=== PATIENT | male | born 2000 | race Caucasian/White ===

== ENCOUNTER 2020-03-03 14:39 | Emergency (ER) | payer OTHER, SELFPAY ==
[2020-03-03 15:13] VITALS: BP 131/73; PULSE 72; RESP 18; TEMP 36.8; O2SAT 100
--- NOTE | 2020-03-03 15:32 | ED.GENADULT ---
HPI - General Adult General Chief complaint: Wound/Laceration Stated complaint: tick bite Time Seen by Provider: 03/03/20 15:35 Source: patient and RN notes reviewed Mode of arrival: ambulatory Limitations: no limitations History of Present Illness HPI narrative: This is a 19 years old male presents to the office for an evaluation of tick bite. He only noticed to a tick prior to arrival. He does not know exactly when or how he got it because he did not go hiking or walking in the park prior to this. 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 He admits to two dogs; but he does not think they have ticks. He is otherwise feeling well. He did not attempt to remove the tick himself. The only reason he knew it was a tick because he took a picture of it and zoom it. Related Data Allergies Allergy/AdvReac Type Severity Reaction Status Date / Time No Known Allergies Allergy Verified 03/03/20 15:03 Review of Systems Review of Systems: Narrative: CONSTITUTIONAL: Denies fever, chills CARDIOVASCULAR: Denies chest pain RESPIRATORY: Denies dyspnea GASTROINTESTINAL: Denies abdominal pain, nausea, vomiting GENITOURINARY: Denies urinary symptoms SKIN:Reports tick stuck on his pubic region MUSCULOSKELETAL: Denies acute back pain NEUROLOGIC: Denies lightheaded PMFSH Comments At time of signature, I agree with nursing past medical, surgical, social and family history. There is no relevant family history pertinent to the presenting complaint. Exam Narrative: Exam Narrative: GENERAL: This is a well-nourished, well-developed patient, in no apparent distress. CARDIOVASCULAR: Regular rate and rhythm without murmurs, gallops, or rubs. RESPIRATORY: Clear to auscultation. Breath sounds equal bilaterally. No wheezes, rales, or rhonchi. GASTROINTESTINAL: Abdomen soft, non-tender, nondistended. Bowel sounds are active. No hepato-splenomegaly, or palpable masses. No guarding. 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 NEURO: awake, alert, and oriented to person, place and time. There were no obvious focal neurologic abnormalities. Steady gait [place] Coma Scale Eye Opening: Spontaneous 4 [place] Coma Scale Motor: Obeys Commands 6 [place] Coma Scale Verbal: Oriented 5 Course Vital Signs Vital signs: Vital Signs Temperature 98.3 F 03/03/20 15:13 Pulse Rate 72 03/03/20 15:13 Respiratory Rate 18 03/03/20 15:13 Blood Pressure 131/73 03/03/20 15:13 Pulse Oximetry 100 03/03/20 15:13 Temperature 98.3 F 03/03/20 15:13 Pulse Rate 72 03/03/20 15:13 Respiratory Rate 18 03/03/20 15:13 Blood Pressure 131/73 03/03/20 15:13 Pulse Oximetry 100 03/03/20 15:13 Procedures Foreign Body Removal Foreign Body #1: Foreign Body Removal Date: 03/03/20 Time Out Performed: no Site: left and other (pubic region) Description of foreign body: other (tick) Sedation/Analgesia: none Technique: manual removal Confirmed by:: direct visualization Complications: none Post-procedure exam: awake, alert Foreign Body Removal Narrative: a full tick removed without any difficult. Medical Decision Making Vital Signs Vital Signs: Vital Signs Temperature 98.3 F 03/03/20 15:13 Pulse Rate 72 03/03/20 15:13 Respiratory Rate 18 03/03/20 15:13 Blood Pressure 131/73 03/03/20 15:13 Pulse Oximetry 100 03/03/20 15:13 Temperature 98.3 F 03/03/20 15:13 Pulse Rate 72 03/03/20 15:13 Respiratory Rate 18 03/03/20 15:13 Blood Pressure 131/73 03/03/20 15:13 Pulse Oximetry 100 03/03/20 15:13 Critical Care Time Critical Care Time Critical Care Time: No Discharge Plan Discharge Clinical Impression: Tick bite Qualifiers: Encounter type: initial encounter Qualified Code(s): W57.XXXA - Bitten or stung by nonvenomous insect and other nonvenomous arthropods, initial encounter Pat
--- NOTE | 2020-03-03 15:37 | PC.NURSE ---
teletypist and xpc tech at bedside to do tick removal.
== END 2020-03-03 15:50 | disposition home or self-care (01) ==
PROVIDERS: Emergency Provider Nurse Practitioner
DX: S30.860A Insect bite (nonvenomous) of lower back and pelvis, initial encounter (principal); W57.XXXA Bitten or stung by nonvenomous insect and other nonvenomous arthropods, initial encounter
CPT/HCPCS: 99203; G0463

== ENCOUNTER 2020-04-25 10:36 | Emergency (ER) | payer OTHER, SELFPAY ==
[2020-04-25 10:48] VITALS: BP 137/80; PULSE 82; RESP 16; TEMP 36.6; O2SAT 98
--- NOTE | 2020-04-25 11:00 | ED.EAR ---
HPI - Ear Problem General Chief complaint: Ear Stated complaint: ear pain Time Seen by Provider: 04/25/20 10:54 Source: patient and RN notes reviewed Mode of arrival: ambulatory Limitations: no limitations History of Present Illness HPI Narrative: Patient presents today complaining of decreased hearing in the right ear and irritation since yesterday 11 PM. Denies any additional symptoms to include fever, cough, congestion, rhinorrhea, sore throat. Denies drainage from the ear. He has tried no [id number] interventions prior to arrival. MD Complaint: decreased hearing Related Data Home Medications Medication Instructions Recorded Confirmed No Home Medications 04/25/20 04/25/20 Allergies Allergy/AdvReac Type Severity Reaction Status Date / Time No Known Allergies Allergy Verified 03/03/20 15:03 Review of Systems Review of Systems: Narrative: CONSTITUTIONAL: Denies body aches, fever, chills, or sweats. EYES: Denies visual changes, redness, or discharge. ENT: Denies rhinorrhea, congestion, sore throat. + Right ear irritation and decreased hearing CARDIOVASCULAR: Denies chest pain, palpitations, or edema. RESPIRATORY: Denies cough or dyspnea. GASTROINTESTINAL: Denies abdominal pain, nausea, vomiting, or diarrhea. GENITOURINARY: Denies dysuria or hematuria. SKIN: Denies rash, itching, or wounds. MUSCULOSKELETAL: Denies back pain, joint pain, or myalgia. NEUROLOGIC: Denies headache, numbness, tingling, or weakness. PSYCH: Denies depression or anxiety. PMFSH Social History Social History Gender identity (if verbalized by the patient): Male Comments At time of signature, I have reviewed and agree with nursing past medical, surgical, social and family history unless otherwise noted. Please see nursing chart for further information. There is no relevant family history pertinent to the presenting complaint Exam Narrative: Exam Narrative: GENERAL: Well-appearing, well-nourished, and in no acute distress. HEAD: Normocephalic, atraumatic. EYES: EOMI. No redness or drainage. Conjunctivae normal. ENT: Mucous membranes pink and moist. Nares clear. No rhinorrhea. TMs normal bilaterally. Mild middle ear effusions bilaterally. No evidence of infection. Throat normal. Uvula midline. NECK: Normal AROM. Supple. No lymphadenopathy. CHEST: No respiratory distress. Clear to auscultation. HEART: Regular rate and rhythm. No murmur appreciated. Normal peripheral pulses. EXTREMITIES: Normal range of motion. No edema. SKIN: Warm, dry, no rash. Capillary refill normal. Normal skin turgor. NEURO: No focal deficits. Alert and oriented x3. Gait steady. PSYCH: Normal affect. No signs of depression or anxiety. Course Vital Signs Vital signs: Vital Signs Temperature 97.8 F 04/25/20 10:48 Pulse Rate 82 04/25/20 10:48 Respiratory Rate 16 04/25/20 10:48 Blood Pressure 137/80 04/25/20 10:48 Pulse Oximetry 98 04/25/20 10:48 Temperature 97.8 F 04/25/20 10:48 Pulse Rate 82 04/25/20 10:48 Respiratory Rate 16 04/25/20 10:48 Blood Pressure 137/80 04/25/20 10:48 Pulse Oximetry 98 04/25/20 10:48 Reviewed. Pt has been instructed to follow up with his PCP regarding his elevated blood pressure today. Medical Decision Making Differential Diagnosis Differential Diagnosis: Otitis media, otitis externa, ruptured TM, serous otitis, eustachian tube dysfunction, cerumen impaction Vital Signs Vital Signs: Vital Signs Temperature 97.8 F 04/25/20 10:48 Pulse Rate 82 04/25/20 10:48 Respiratory Rate 16 04/25/20 10:48 Blood Pressure 137/80 04/25/20 10:48 Pulse Oximetry 98 04/25/20 10:48 Temperature 97.8 F 04/25/20 10:48 Pulse Rate 82 04/25/20 10:48 Respiratory Rate 16 04/25/20 10:48 Blood Pressure 137/80 04/25/20 10:48 Pulse Oximetry 98 04/25/20 10:48 Critical Care Time Critical Care Time Critical Care
== END 2020-04-25 11:07 | disposition home or self-care (01) ==
PROVIDERS: Emergency Provider Nurse Practitioner
DX: H65.01 Acute serous otitis media, right ear (principal)
CPT/HCPCS: 99211; G0463

== ENCOUNTER 2020-09-18 15:05 | Emergency (ER) | payer OTHER, SELFPAY ==
[2020-09-18 15:13] VITALS: BP 153/85; PULSE 100; RESP 16; TEMP 36.5; O2SAT 99
--- NOTE | 2020-09-18 15:20 | ED.GENADULT ---
HPI - General Adult General Chief complaint: Unspecified Stated complaint: Swollen Lymphnode Time Seen by Provider: 09/18/20 15:20 Source: patient Mode of arrival: ambulatory Limitations: no limitations History of Present Illness HPI narrative: Baldo Daniels is a 20 yo male with no PMH who comes to express care with R sided lump on jaw. Started about 3 days ago- vomited and diarrhea on Saturday. Related Data Allergies Allergy/AdvReac Type Severity Reaction Status Date / Time No Known Allergies Allergy Verified 03/03/20 15:03 Review of Systems Review of Systems: Narrative: CONSTITUTIONAL: Denies fever, chills, sweats. EYES: Denies visual changes, redness, discharge. ENT: Denies rhinorrhea, congestion, sore throat, otalgia. Right-sided jaw lesion that is painful CARDIOVASCULAR: Denies chest pain, palpitations, edema. RESPIRATORY: Denies dyspnea, wheezing, cough GASTROINTESTINAL: Denies abdominal pain, nausea, vomiting, diarrhea. GENITOURINARY: Denies dysuria, hematuria, abnormal discharge SKIN: Denies rash or itching. NEUROLOGIC: Denies numbness, or focal weakness. PSYCHIATRIC: Denies anxiety or depression. PMFSH Past Medical History Medical History No active medical problems Family History Family History Other Diabetes mellitus Hypertension Social History Social History (Updated 09/18/20 @ 15:33 by Tasha Nguyễn CNP) Smoking status: Current every day smoker Tobacco type: e-cigarettes/vaping Alcohol intake: current Gender identity (if verbalized by the patient): Male Comments At time of signature, I agree with nursing past medical, surgical, social and family history. There is no relevant family history pertinent to the presenting complaint. Blood pressure elevated to [id number] with PCP Exam Narrative: Exam Narrative: GENERAL: This is a well-nourished, well-developed patient, in moderate distress. HEAD: normocephalic, atraumatic. EYES: Sclera clear/white. Vision is grossly intact. EARS: External ears normal. Hearing grossly intact. NOSE: External nose normal without nasal discharge, nares without redness, no rhinorrhea. THROAT: Mucous membranes moist, no pain in the inner cheek are gingival border of right lower or upper teeth when examined manually NECK: Neck supple, non-tender CARDIOVASCULAR: Regular rate and rhythm without murmurs, gallops, or rubs. RESPIRATORY: Clear to auscultation. Breath sounds equal bilaterally. No wheezes, rales, or rhonchi. GASTROINTESTINAL: Abdomen soft, non-tender, SKIN: warm, intact with no suspicious lesions or rash, good texture and turgor. NEURO: awake, alert, and oriented to person, place and time. There were no obvious focal neurologic abnormalities. Steady gait EXTREMITIES: Normal range of motion. BACK: Nontender without deformity Course Course Emergency Course: Came to express care, painful lesion to the right jaw Started on Keflex and 800 mg ibuprofen Follow-up with PCP Vital Signs Vital signs: Vital Signs Temperature 97.7 F 09/18/20 15:13 Pulse Rate 100 09/18/20 15:13 Respiratory Rate 16 09/18/20 15:13 Blood Pressure 153/85 H 09/18/20 15:13 Pulse Oximetry 99 09/18/20 15:13 Temperature 97.7 F 09/18/20 15:13 Pulse Rate 100 09/18/20 15:13 Respiratory Rate 16 09/18/20 15:13 Blood Pressure 153/85 H 09/18/20 15:13 Pulse Oximetry 99 09/18/20 15:13 Medical Decision Making Differential Diagnosis Differential Diagnosis: Lymph node enlargement versus dental abscess versus pharyngitis Vital Signs Vital Signs: Vital Signs Temperature 97.7 F 09/18/20 15:13 Pulse Rate 100 09/18/20 15:13 Respiratory Rate 16 09/18/20 15:13 Blood Pressure 153/85 H 09/18/20 15:13 Pulse Oximetry 99 09/18/20 15:13 Temperature 97.7 F 09/18/20 15:13 Pulse Rate 100 09/18/20 15:13 Respiratory Rate
== END 2020-09-18 15:41 | disposition home or self-care (01) ==
PROVIDERS: Emergency Provider Nurse Practitioner
DX: L04.0 Acute lymphadenitis of face, head and neck (principal); F17.200 Nicotine dependence, unspecified, uncomplicated
CPT/HCPCS: 99213; G0463